=== PATIENT | male | born 1930 | race Caucasian/White ===

== ENCOUNTER 2016-10-08 12:22 | Emergency (ER) | payer MEDICARE, OTHER ==
[~2016-10-08] VITALS: Ht 172.7 cm; Wt 75.7 kg
[2016-10-08 13:43] VITALS: BP 106/69
[2016-10-08 13:53] LABS: Partial Thromboplastin Time 36.5 sec (22.64-33.71)
[2016-10-08 14:30] LABS: INR 2.49 (0.9-1.15); Prothrombin Time 27.4 sec (9.37-12.3)
== END 2016-10-08 15:19 | disposition home or self-care (01) ==
LOC: ER 12:22
DX: S50.11XA Contusion of right forearm, initial encounter (principal); I48.91 Unspecified atrial fibrillation; X50.9XXA Other and unspecified overexertion or strenuous movements or postures, initial encounter; Y93.89 Activity, other specified; Y99.8 Other external cause status; Y92.59 Other trade areas as the place of occurrence of the external cause; Z96.89 Presence of other specified functional implants
CPT/HCPCS: 36415; 73060; 73080; 73090; 85610; 85730